=== PATIENT | female | born 1955 | race Caucasian/White ===

== ENCOUNTER 2021-12-28 11:29 | Observation (INO) | payer OTHER ==
[~2021-12-28] VITALS: Ht 165.1 cm; Wt 99.3 kg
[~2021-12-28 11:29] MED LIST: CALCIUM; LISINOPRIL10 MG; MULTIVITAMIN; NEXIUM40 MG; PREMARIN
[2021-12-28] MEDS ORDERED: ASPIRIN 325 MG TAB EC PO STA (12:22)
[2021-12-28] MEDS ORDERED: Morphine 4mg INJECTION 4 MG/ML INJ IV PRN ×2 (12:30→14:00)
[2021-12-28] MEDS ORDERED: ONDANSETRON HCL INJ 2MG/ML 2ML 2 MG/ML VIAL IV PRN ×2 (12:30→14:00)
[2021-12-28] MEDS ORDERED: SODIUM CHLORIDE 0.9% 1000ML 1,000 ML IV ONE (12:30)
[2021-12-28 12:53] LABS: BASOPHILS % 0.2 % (0.0-1.0); HEMATOCRIT 42.3 % (34.2-44.1); HEMOGLOBIN 14.1 g/dL (12.0-16.0); LYMPHOCYTES # (AUTO) 2.4 (1.0-3.2); MEAN CORPUSCULAR HEMOGLOBIN 31.1 pg (28-32); MEAN CORPUSCULAR HGB CONC 33.3 g/dL (31-35); MEAN CORPUSCULAR VOLUME 93.2 fL (81-99); MONOCYTES # (AUTO) 1.5 (0.2-0.8); MONOCYTES % 9.6 % (4.4-11.3); NEUTROPHILS # (AUTO) 10.6 (2.1-6.9); NEUTROPHILS % 70.4 % (38.7-80.0); PLATELET COUNT 418 x10e3/uL (140-360); RED BLOOD COUNT 4.54 x10e6/uL (3.6-5.1)
[2021-12-28 13:03] LABS: INR 0.97; PROTHROMBIN TIME 13.8 seconds (11.9-14.5)
[2021-12-28 13:04] LABS: PARTIAL THROMBOPLASTIN TIME 20.4 seconds (23.8-35.5)
[2021-12-28 13:10] LABS: ALANINE AMINOTRANSFERASE 25 IU/L (0-55); ALBUMIN/GLOBULIN RATIO 0.8 (0.8-2.0); ALKALINE PHOSPHATASE 78 IU/L (40-150); ANION GAP 14.9 mmol/L (8-16); BLOOD UREA NITROGEN 28 mg/dL (7-26); BUN/CREATININE RATIO 36 (6-25); CALCIUM 8.5 mg/dL (8.4-10.2); CARBON DIOXIDE 28 mmol/L (22-29); CHLORIDE 99 mmol/L (98-107); CREATININE, SERUM 0.78 mg/dL (0.57-1.11); GLUCOSE 108 mg/dL (74-118); POTASSIUM 3.9 mmol/L (3.5-5.1); SODIUM 138 mmol/L (136-145)
[2021-12-28] MEDS ORDERED: ASPIRIN 325 MG TAB PO ONE (13:15)
[2021-12-28] MEDS ORDERED: SODIUM CHLORIDE FLUSH 10 ML SYR INJ PRN (14:00)
[2021-12-28] MEDS ORDERED: ASPIRIN 81 MG CHEW TAB PO ONE (14:00)
[2021-12-28 15:10] LABS: CREATINE KINASE 37 IU/L (29-168)
[2021-12-28 16:00] VITALS: BP 158/83
[2021-12-28 16:16] VITALS: BP 158/83
[2021-12-28 20:00] VITALS: BP 105/79
[2021-12-28 23:57] VITALS: BP 116/50
[2021-12-29 01:53] LABS: CREATINE KINASE 30 IU/L (29-168)
[2021-12-29 08:00] VITALS: BP 116/50
[2021-12-29] MEDS ORDERED: LISINOPRIL 10 MG TAB PO SCH (09:00)
[2021-12-29] MEDS ORDERED: ASPIRIN 81 MG ENTERIC COATED PO SCH (09:00)
[2021-12-29 09:41] VITALS: BP 141/69
== END 2021-12-29 09:55 | disposition home or self-care (01) ==
LOC: ER 11:32 → INTOOBSV 13:57 → ERHOLD 13:57 → MED/SURG2 15:20
PROVIDERS: ADMIT Family Medicine; ATTEND Family Medicine
DX: R07.89 Other chest pain (principal); U07.1 COVID-19; K21.9 Gastro-esophageal reflux disease without esophagitis; I10 Essential (primary) hypertension
CPT/HCPCS: 0223U; 36415; 71045; 80053; 82550 ×2; 82553 ×2; 83880; 84484 ×2; 85025; 85379; 85610; 85730; 93005; 93306; 94799 ×2; 99284; C9113 ×2; G0378 ×2; J7030

== ENCOUNTER → 2022-01-17 | Day surgery (SDC) | payer OTHER ==
[~2022-01-17] MED LIST changes: +BENICAR20 MG PO; +FAMOTIDINE20 MG PO; +FENTANYL CITRATE/PF 100MCG/2 ML INJ ONE; +FISH OIL 1,0001 EAC2; +FUROSEMIDE40 MG PO; +LIDOCAINE HCL 2% LOCAL INJ 5 ML SDV VIAL INJ ONE; +METOCLOPRAMIDE HCL 10 MG/2ML VIAL ONE; +METOPROLOL; +MIDAZOLAM HCL 2 MG/2 ML VIAL ONE; +OMEPRAZOLE40 MG PO; +PROPOFOL IV EMULSION 10 MG/ML 20 ML VIAL ONE; +VITAMIN E400 UNI1 PO
[2022-01-17 14:36] VITALS: BP 140/77
== END | disposition home or self-care (01) ==
LOC: OR 10:51
PROVIDERS: ATTEND Internal Medicine Gastroenterology
DX: K21.9 Gastro-esophageal reflux disease without esophagitis (principal); K29.70 Gastritis, unspecified, without bleeding; K44.9 Diaphragmatic hernia without obstruction or gangrene; Z71.3 Dietary counseling and surveillance; G47.33 Obstructive sleep apnea (adult) (pediatric); I10 Essential (primary) hypertension; I49.3 Ventricular premature depolarization; E66.9 Obesity, unspecified; Z79.899 Other long term (current) drug therapy; Z68.38 Body mass index [BMI] 38.0-38.9, adult; Z86.16 Personal history of COVID-19
CPT/HCPCS: 43239; C9113; J2001; J2250; J2704; J2765; J3010

== ENCOUNTER → 2022-12-09 | Day surgery (SDC) | payer OTHER ==
[2022-12-05 08:43] LABS: BASOPHILS % 0.3 % (0.0-1.0); EOSINOPHILS # (AUTO) 0.1 (0.0-0.4); EOSINOPHILS % 2.2 % (0.0-6.0); HEMATOCRIT 39.9 % (34.2-44.1); HEMOGLOBIN 13.4 g/dL (12.0-16.0); LYMPHOCYTES # (AUTO) 2.1 (1.0-3.2); LYMPHOCYTES % 34.1 % (18.0-39.1); MEAN CORPUSCULAR HEMOGLOBIN 31.2 pg (28-32); MEAN CORPUSCULAR HGB CONC 33.6 g/dL (31-35); MEAN CORPUSCULAR VOLUME 92.8 fL (81-99); MONOCYTES # (AUTO) 0.4 (0.2-0.8); MONOCYTES % 7.2 % (4.4-11.3); NEUTROPHILS # (AUTO) 3.4 (2.1-6.9); PLATELET COUNT 318 x10e3/uL (140-360); RED CELL DISTRIBUTION WIDTH 12.4 % (11.7-14.4)
[~2022-12-09] MED LIST changes: -METOPROLOL; +METOPROLOL PO; -MIDAZOLAM HCL 2 MG/2 ML VIAL ONE; +ONDANSETRON HCL INJ 2MG/ML 2ML 2 MG/ML VIAL ONE; +POVIDONE IODINE 0.05% 0.05 % ML PO ONE; +PROPOFOL IV EMULSION 50 ML IV ONE
[2022-12-09 11:45] VITALS: BP 142/73; PULSE 59; RESP 18; O2SAT 100
== END | disposition home or self-care (01) ==
LOC: OR 08:34
PROVIDERS: ATTEND Internal Medicine Gastroenterology
DX: Z12.11 Encounter for screening for malignant neoplasm of colon (principal); D12.2 Benign neoplasm of ascending colon; K63.3 Ulcer of intestine; K57.30 Diverticulosis of large intestine without perforation or abscess without bleeding; K62.89 Other specified diseases of anus and rectum; K64.8 Other hemorrhoids; K21.9 Gastro-esophageal reflux disease without esophagitis; Z71.3 Dietary counseling and surveillance; G47.33 Obstructive sleep apnea (adult) (pediatric); I10 Essential (primary) hypertension; E78.5 Hyperlipidemia, unspecified; Z88.8 Allergy status to other drugs, medicaments and biological substances; Z01.810 Encounter for preprocedural cardiovascular examination; Z01.812 Encounter for preprocedural laboratory examination; Z79.899 Other long term (current) drug therapy; Z86.16 Personal history of COVID-19; Z68.35 Body mass index [BMI] 35.0-35.9, adult
CPT/HCPCS: 36415; 45380; 85025; 93005; J2001; J2405; J2704 ×2; J2765; J3010; 45378; 45384